=== PATIENT | female | born 1945 | race Two or more races ===

== ENCOUNTER 2022-03-18 09:23 | Emergency (ER) | payer OTHER ==
[~2022-03-18] VITALS: Ht 157.5 cm; Wt 70.0 kg
[2022-03-18 10:58] VITALS: BP 132/100
[2022-03-18] MEDS ORDERED: traMADol HCL 50 MG TAB PO ONE (11:00)
[2022-03-18] MEDS ORDERED: MELO7.5T9 PO (12:29)
[2022-03-18] MEDS ORDERED: TRAM-297 PO (12:29)
== END 2022-03-18 12:40 | disposition home or self-care (01) ==
LOC: ER 09:23
DX: M47.812 Spondylosis without myelopathy or radiculopathy, cervical region (principal); M50.30 Other cervical disc degeneration, unspecified cervical region; E11.9 Type 2 diabetes mellitus without complications; Z88.0 Allergy status to penicillin; X50.1XXA Overexertion from prolonged static or awkward postures, initial encounter; Y93.89 Activity, other specified; Y92.89 Other specified places as the place of occurrence of the external cause; Y99.8 Other external cause status
CPT/HCPCS: 72040